=== PATIENT | male | born 1955 | race Caucasian/White ===

== ENCOUNTER 2021-08-19 07:10 | Inpatient (IN) | payer OTHER, MEDICARE, SELFPAY ==
[2021-08-19] VITALS (77 sets, daily range): BP systolic 129–199; BP diastolic 68–109; PULSE 78–115; RESP 14–33; TEMP 35.6–36.8; O2SAT 88–100
--- NOTE | 2021-08-19 07:30 | RT.EKG_ITS ---
APPROVED REPORT Exam: Resting ECG Reason for Exam: sob Patient Location: E HR:105 bpm ECG Measurements Heart Rate 105 AXIS KS 166 P 89 QRSd 102 QRS -83 QT 361 T 62 QTc 477 Conclusion Sinus tachycardia...rate> 99 Probable left atrial enlargement...P >50mS, <-0.10mV V1 Inferior infarct, old...Q >35mS, II III aVF Probable anterolateral infarct, old...Q>35mS, abnrm ST-T, V2-V6,I,aVL sinus tachycardia, left axis, PVC
--- NOTE | 2021-08-19 07:50 | W.ED.GENAD ---
Discharge Plan Disposition Patient Disposition: [facility] INPATIENT Condition: Serious Discharge Details Chief Complaint: SOB Clinical Impression: Alcoholism, Blood pressure elevated without history of HTN, CHF (congestive heart failure) Admit Date/Time: 08/19/21 09:56 Admit Provider: Jun Salguero Attending Provider: Jun Salguero Primary Care Provider: Unknown,Unknown ED Provider: Diamond Jamil Discharge Data Discharge Date/Time-TO BE ENTERED AT DEPARTURE: 08/19/21 10:49 Medical Decision Making Patient is a pleasant 56-year-old male, accompanied by significant other, with chief complaint of shortness of breath. He reports shortness of breath began approximately 1 month ago and has progressively increased. States it is worse when exerting himself and laying flat. Is been having difficulty sleeping secondary shortness of breath. He denies any chest pain. Denies any GI upset. However, he and his do report that they have noticed his abdomen has become more rotund. Over the past week, they have noted increased lower extremity edema. Patient denies any fevers or chills. Smokes 1.5 packs/day. During 6-12 beers per day. Does not receive routine medical care. Denies any personal or familial history of DVT. No recent travel or trauma. No recent surgeries. No known sick contacts. On exam, patient appears acute on chronically ill. He is Currently on 2 L nasal cannula. He is receiving some benefit with the oxygen. He is in a full upright position, reports feeling increased shortness of breath with any type of reclined position. He has crackles throughout, diminished sounds at the bases. Normal cardiac auscultation. Abdomen is distended with positive fluid wave. He is to pulses in all of his extremities. He has 2+ lower extremity pitting edema. No calf tenderness. Patient is hypertensive. EKG was obtained and reviewed by Dr. Samantha Deal. Patient is in sinus rhythm of 105. PVCs noted. No evidence of STEMI. Concern at this time for CHF exacerbation. Dr. Samantha Deal did evaluate the patient and performed bedside ultrasound. Concern for B-lines diffusely, no notable effusion. Concern for diminished contraction of the left ventricle. At this time, I am primarily concerned the patient may have suffered an ND affecting the LV and ultimately leading to pulmonary edema and RV dysfunction. Symptomatic management, radha RT to apply BiPAP, will give IV Lasix. Will obtain bedside x-ray. At this time, patient is unable to lay flat for CT. However, PE is also on my differential, I do feel that moving forward with PE study once you are able with be appropriate. Also considered other pulmonary causes such as COPD, mass or hepatic involvement. Patient is tolerating BiPAP well. Has had at 1900 out in urine after 40 mg of Lasix. Is feeling improved. I was able to test the patient and with the BiPAP on, he is able to tolerate laying slightly flat allowing us to be able to move forward for CT if needed. Patient was given a nicotine patch. I am concerned about potential alcohol withdrawal. Patient also appears quite anxious I did offer anxiolytic which he declined. Labs reviewed. No leukocytosis. Normal H&H. D-dimer is elevated at 685, plan was for for CT for PE protocol. CMP significant for sodium of 129, chloride of 88, anion gap of 15.7. Creatinine and GFR within normal limits. Glucose elevated at 140.. LFTs are within normal limits. Troponin within normal limits, particular the patient is not have any significant chest pain, do not feel that we need repeat troponin prior to the physician for the patient. BNP is elevated at 2720. TSH within normal limits. COVID test negative. Contacted by radiologist, CT concerning for right side effusion, cardiomegally. No PE. Discussed these findings at length with the patient and his . Again, continue to be concerned regarding the LV dysfunction noted on bedside ultrasound. Plan for admission for CHF exacerbation, continue diuresis and evaluation. Consulted with Dr. Cabezas who agrees to admission. He did recommend beginning low-dose phenobarbital treatment to prevent any alcohol withdrawal. Discussed beginning phenobarbital with the patient. He declined this intervention. He reports that he did stop drinking for approximately 6 months at one time. describes him as being shaky and anxious patient denies any seizure activity or an feel that he is not going through withdrawal. Patient refuses premedication for withdrawal symptoms. He continues to do well on the BiPAP is comfortable. HPI General Date/Time Provider Initiated Documentation: 08/19/21 07:38. Limitations to Documentation: no limitations. Information obtained by: patient, family () and RN notes reviewed. History of Present Illness 66 year old M presents to the emergency department with the chief complaint of shortness of breath, described as severe, Quality is described as other (SOB), and is localized to the chest. Patient reports no radiation. Patient started experiencing this month(s) (1) and it has been constant. improves with Rest improves symptom(s), (sitting upright) Movement worsens symptoms (exertion and laying flat) . Patient notes cough (reports unchanged chronic smokers cough) and shortness of breath; denies confusion, chest pain, diaphoresis, fever/chills, loss of appetite, nausea/vomiting, rash and syncope. Patient did receive the following treatments prior to arrival, none Related Data Home Medications Medication Instructions Recorded Confirmed Unknown [No Known Home Meds] 08/19/21 08/19/21 General Stated Complaint: SOB DORIAN: 2 Review of Systems Constitutional Constitutional: Reports as per HPI, Denies chills, Reports daytime sleepiness, Reports fatigue, Denies fever(s), Reports lethargy, Denies poor appetite and Reports weight gain Cardiovascular Cardiovascular: Reports as per HPI, Denies chest pain, Denies chest pain at rest, Denies chest pain with activity, Reports pedal edema, Denies claudication, Reports leg edema, Denies lightheadedness, Denies radiating jaw, neck or arm pain, Denies palpitations, Reports dyspnea, Reports dyspnea on exertion, Reports orthopnea and Reports paroxysmal nocturnal dyspnea Respiratory Respiratory: Reports as per HPI, Denies change in phlegm color, Reports chest congestion, Reports cough, Denies hemoptysis, Denies pain on inspiration, Denies pain with cough, Reports dyspnea, Reports dyspnea on exertion and Denies wheezing Gastrointestinal Gastrointestinal: Reports as per HPI, Denies abdominal pain, Reports bloating (noted abdomen to be distended), Denies diarrhea, Denies nausea and Denies vomiting Genitourinary Genitourinary: Denies system reviewed and no additional complaints, except as documented (denies change in urinary habits) Musculoskeletal Musculoskeletal: Reports as per HPI and Denies back pain Integumentary/Breasts Skin/Breast: Reports as per HPI and Denies rash Neurologic Neurologic: Reports as per HPI Endocrine Endocrine: Reports fatigue and Denies palpitations Allergic/Immunologic Allergic/Immunologic: Denies wheezing PFSH All Active Problems (Updated 08/19/21 @ 14:47 by DAVID Mercado) CHF (congestive heart failure) (Chronic) Mitral regurgitation (Chronic) Cardiomyopathy (Acute) Blood pressure elevated without history of HTN (Acute) Alcoholism (Chronic) Acute systolic (congestive) heart failure (Acute) Medical History (Updated 08/19/21 @ 14:47 by DAVID Mercado) No pertinent past medical history Surgical History (Updated 08/19/21 @ 13:46 by Jun Salguero) No significant past surgical history Family History (Updated 08/19/21 @ 13:49 by Jun Salguero) Aunt No problems noted. Mother Seizure Father No problems noted. Sister No problems noted. Brother No problems noted. Son No problems noted. Son No problems noted. Social History (Updated 08/19/21 @ 13:50 by Jun Salguero) Smoking/Tobacco Use Status: Current every day Tobacco Type: cigarettes Tobacco: How many years used: 50 Smoking risk assessment performed?: Yes Alcohol Intake: current Alcohol Intake frequency: other Alcohol type: beer Previous attempts at quittin Details: 6 to 12 beers per day Substance use type: does not use Do you feel safe at home: Yes Do you feel safe in your relationship?: Yes Exam Const General: cooperative, not healthy appearing, uncomfortable, well developed, acute distress moderate and respiratory, anxious and ill appearing acutely Nutritional Appearance: well nourished and overweight Orientation: alert, awake and oriented x3 HENMT Head: normal to inspection Ears: hearing grossly normal bilaterally Mouth: moist mucous membranes Eyes General: appearance normal, both eyes and all related structures Neck Neck: normal visual inspection and no JVD Chest Chest: normal inspection of the chest, normal palpation of entire chest wall and no crepitus Resp Effort & Inspection: no audible wheezes, no cough, pursed lip breathing, respiratory distress, tachypneic, tripod positioning and uses accessory muscles Auscultation: clear to auscultation bilaterally, no rales, no rhonchi and no wheezes Cardio Rate: tachycardic Rhythm: regular rhythm Heart Sounds: S1 normal and S2 normal GI Inspection: no edema and distended Palpation: firm, no guarding, not rigid and nontender Percussion: fluid wave Auscultation: normal bowel sounds Skin General skin exam: no rashes or lesions noted Trauma: no lacerations or abrasions Neuro General: patient alert, patient awake and patient oriented x3 Cognition: normal cognition Speech: speech normal Extrem General: capillary refill normal, no calf tenderness bilaterally, clubbing and edema Laterality: bilateral (2+) Psych Appearance: grossly normal and well kempt Mental Status: mental status grossly normal Speech and Movement: speech and movement normal Course Vital Signs Vital signs: Vital Signs Temperature 36.8 C 08/19/21 07:23 Pulse 107 H 08/19/21 07:23 Blood Pressure 199/103 H 08/19/21 07:23 Temperature 36.8 C 08/19/21 07:23 Temperature Source Temporal Artery Scan 08/19/21 07:23 Pulse 107 H 08/19/21 07:23 Respiratory Rate 33 H 08/19/21 07:31 Respiratory Effort 08/19/21 07:31 Respiratory Depth Deep 08/19/21 07:31 Respiratory Pattern Normal 08/19/21 07:31 Blood Pressure 199/103 H 08/19/21 07:23 Blood Pressure Position Supine 08/19/21 07:23 Oxygen Delivery Method Room Air 08/19/21 07:23 Oxygen Flow Rate 0 08/19/21 07:23 PAWSS Have you Been Recently Intoxicated or Drunk Within the Last 30 days?: Yes Have you Ever Experienced Previous Episodes of Alcohol Withdrawal?: Yes Have you ever Experienced Withdrawal Seizures?: No Have you ever Experienced Delirium Tremens(DT)s?: No Have you ever undergone Alcohol Rehabilitation Treatment (i.e, inpt ot outpatient treatment programs)?: No Have you ever Experienced Blackouts?: No Have you ever Combined Alcohol with other Downers within the last 90 days?: No Have you ever Combined Alcohol with any other Substance of Abuse during the last 90 days?: No Evidence of Increased Autonomic Activity (i.e. HR>120, tremor, sweating, agitation, nausea)?: Yes Result: 3
[2021-08-19 08:10] LABS: Source Nasal/Nares
[2021-08-19 08:11] LABS: Abs Immature Grans 0.05 10^3/uL (0.0-0.06); Absolute Basophil Count 0.05 10^3/uL (0.0-0.2); Absolute Eosinophil Count 0.06 10^3/uL (0.0-0.7); Absolute Lymphocyte Count 1.16 10^3/uL (1.2-3.4); Absolute Monocyte Count 0.92 10^3/uL (0.1-0.8); Absolute Neutrophil Count 7.97 10^3/uL (1.2-6.7); Basophils % 0.5; Eosinophils % 0.6; HCT 45.8 % (40.0-50.0); HGB 15.5 g/dL (13.5-17.5); Immature Grans % 0.5; Lymphocytes % 11.4; MCH 29.4 pg (27.0-33.0); MCHC 33.8 % (32.0-36.0); MCV 87 fL (80-95); MPV 10.6 fL (8.0-11.0); Platelet Count 247 10^3/uL (130-400); RBC 5.27 10^6/uL (4.36-5.78); RDW 12.7 % (11.8-14.1); RDW-SD 39.9 fL; WBC 10.21 10^3/uL (4.4-10.8)
[2021-08-19] MEDS: Furosemide 40 MG/4 ML VIAL IVP ×2 (08:16→18:00)
[2021-08-19] MEDS: Normal Saline Flush 10 ML SYR IVP ×3 (08:17→16:49)
[2021-08-19 08:29] LABS: INR 1.1 (0.9-1.1); PTT Activated 27.8 sec (21.0-27.5)
[2021-08-19 08:33] LABS: ALT 37 U/L (16-63); AST 28 U/L (15-37); Albumin 3.6 g/dL (3.4-5.0); Alkaline Phosphatase 61 U/L (46-116); Anion Gap 15.7 mmol/L (3-11); BUN 11 mg/dL (7-18); CO2 25.3 mmol/L (21.0-32.0); CREATININE 0.7 mg/dL (0.70-1.30); Calcium 8.5 mg/dL (8.5-10.1); Chloride 88 mmol/L (98-107); Glucose 143 mg/dL (74-106); Magnesium 1.8 mg/dL (1.8-2.4); Potassium 3.9 mmol/L (3.5-5.1); Sodium 129 mmol/L (136-145); Total Protein 6.9 g/dL (6.4-8.2); Troponin I < 50 ng/L (<or=60)
[2021-08-19 08:44] LABS: D-Dimer 685 ng/mlFEU (<500)
[2021-08-19 08:48] LABS: COVID-19 PCR Negative (Negative)
--- NOTE | 2021-08-19 08:51 | DI.RAD_ITS ---
Exam(s) XR PORTABLE CHEST AP EXAM: XR PORTABLE CHEST AP CLINICAL HISTORY: SOB TECHNIQUE: 2D digital imaging was performed. COMPARISON: No exams were available for comparison FINDINGS: Exam is somewhat limited by patient body habitus and under penetration. LUNGS: Small right pleural effusion. Increased densities at right lung base could represent pneumoni a. Left lung appears clear. HEART: Enlarged. Aorta not dilated. Leads overlie the chest. AORTA: Normal. BONES: Multiple old right rib fractures. Soft tissues: Unremarkable. IMPRESSION: Small right pleural effusion and right basilar infiltrate. DATA REPOSITORY: RADIATION DOSE DELIVERED:
[2021-08-19] MEDS: Nicotine 21 MG/24 HR PATCH TD (08:52)
--- NOTE | 2021-08-19 09:00 | DI.CT_ITS ---
Exam(s) CT CHEST PE CTA EXAM: CT CHEST PE CTA CLINICAL HISTORY: SOB, elevated d-dimer, swelling. TECHNIQUE: Imaging Protocol: Axial CT angiography was performed with multi-slice acquisition and mu lti-planar reconstructions as well as axial, coronal and sagittal MIP reconstructions. CONTRAST MATERIAL: Intravenous: Omnipaque 350 Contrast volume:100 ml COMPARISON: CR XR PORTABLE CHEST AP from 08/19/2021 FINDINGS: Pulmonary Arteries: No evidence of filling defect to suggest pulmonary emboli. Tracheobronchial tree: Patent where visualized. Mediastinum and Gela: No dominant adenopathy or fluid collection. Pulmonary parenchyma: Somewhat limited evaluation due to respiratory motion. Mild atelectasis right inferomedial middle lobe. No consolidation or dominant measurable mass. Pleura: Small right pleural effusion. No pneumothorax. Heart: The heart is dilated. Mitral annular calcifications. No coronary artery calcifications are seen. Aorta: Thoracic aorta non-dilated. No aneurysm. No dissection. Upper abdomen: Enlarged fatty liver. Small bilateral adrenal adenomas. Bones: Degenerative disc changes, unremarkable for age. IMPRESSION: No evidence of pulmonary embolism. Cardiomegaly. Small right pleural effusion and mild right middle lobe atelectasis. Results of this exam have been verbally communicated with emergency department provider. RADIATION DOSE DELIVERED: 516.48mGy.cm Total DLP DATA REPOSITORY: All CT scans at this facility are submitted to the National Radiology Data Registry (NRDR) Dose Index Registry (DIR) with the [employer] ([employer]). RADIATION OPTIMIZATION: All CT scans at this facility use at least one of these dose optimization te chniques: automated exposure control; mA and/or kV adjustment per patient size (includes targeted exa ms where dose is matched to clinical indication); or iterative reconstruction.
[2021-08-19 09:11] LABS: NT-proBNP 2720 pg/mL (<300); TSH (W/Ref FT4) 1.47 uIU/mL (0.36-3.74)
[2021-08-19] MEDS: Omnipaque 350 MG/ML 100 ML BTL IJ (09:40)
--- NOTE | 2021-08-19 10:12 | HPE_ITS ---
Date of service: 08/19/21 Time of Service: 10:12 Assessment and Plan Assessment and plan (1) Acute systolic (congestive) heart failure: Status: Acute Assessment and plan: ischemic vs nonischemic; cont. iv lasix drip, diurese by 5 to 6 liters over the next 24h, cycle troponin levels; begin aldosterone; once he is euvolemic begin low dose Toprol XL and start him on empagliflozin and Entresto. arrange outpatient stress MPI and PSG. Encourage abstinence. cont. CPAP or BIPAP while diuresing but if not acute dyspneic and he is able to maintain good oxygen saturation w/ nasal cannula then I am ok w/ using NC if he wont wear the BIPAP. HOwever, I am certain that he has VALERIANO and should be on it at least at night. Critical care time spent interviewing and examining the patient, reviewing studies, discussing case with patient's nurse and consulting physicians was 60 minutes (2) Alcoholism: Status: Chronic Assessment and plan: begin thiamine, folic acid, mvs; patient declined phenobarbital prophylaxis but if he shows signs of rising CIWA score then I would begin low dose phenobarbital. (3) Obstructive sleep apnea: Status: Suspected Assessment and plan: strongly suspected based on his neck circumference, hx of snoring and witnessed apneic spells. (4) Blood pressure elevated without history of HTN: Status: Acute Assessment and plan: no hx of HTN and his elevated BP may be in response to his acute respiratory distress on admission to the ER. Will monitor while diuresing. He will need to be on ARB/NI, (5) Cardiomyopathy: Status: Acute Assessment and plan: I suspect that this is d/t his alcoholism however, need to (6) Mitral regurgitation: Status: Chronic History of Present Illness History of Present Illness Chief Complaint: dyspnea, legs swelling Narrative: 66 yr old male smoker and drinker of alcohol who presented to the ED at his girlfriend's urging d/t increasing bilateral leg and abdominal edema and dyspnea. He has been experiencing dypsnea for past several weeks and bilateral leg edema to his knees for past few weeks. He also has noted occasional chest tightness. He says that his physician, Dr. Bergeron told him years ago that he has a heart murmur but never had any workup for this. He denies any hx of WA. His girlfriend who later presented to the ICU after I interviewed him tells me that he snores a lot in his sleep and occasionally has apneic spells but he has not had workup for VALERIANO. He drinks anywhere from a couple beers up to 12 pack per day. His girlfiend w/ whom has lived for over 20 yrs says that he begins drinking at 2 pm right after work and does not quit until bedtime. On arrival to the ER he was tachycardic at 107 bpm (sinus tachycardia), hypertensive 199/103, afebrile 36.8, tachypneic at 33 breaths per minute, but he was not hypoxemic (SPO2 95%). Patient was put on bipap and given lasix 40 mg IVP while ischemia and PE workup were performed. Evaluation in the ER included EKG, CXR, labs. EKG demonstrated sinus tachycardia @ 105 bpm w/ occasional PVC. No acute ischemic ST-T changes. CXR demonstrates cardiomegaly and right pleural effusion and atelectasis on the right along w/ increased interstitial edema.CTA chest did not show any PE but demonstrated cardiomegaly, small right pleural effusion and right middle lobe atelectasis. Labs included CBC, CMP, troponin I, pro-BNP, TSH, protime, aPtt, D-dimer. CBC was normal, CMP demonstrates low sodium 129, low chloride 88, normal BUN and creatinine, normal LFT's and normal troponin I of 61 but elevated BNP of 2720. Patient was given lasix 40 mg IVP w/ diuresis of 1900 mL. POCUS performed by ER atttending demonstrated severe LV dysfunction and his lung POCUS demonstrates bilateral diffuse B lines. Patient is admitted to the ICU for further evluation and treatment of acute CHF. Echo has been now performed and demonstrated severe LV dysfunction w/ LVEF 20- 25% w/ global hypokinesis. RV mildly to moderately enlarged but grossly normal systolic function, LAE mod., NICOLE mildly, mild AI, MR moderate to severe, TR mild to moderate w/ RVSP 36 mm, mildly dilated ascending aorta 3.62 cm. Review of Systems Constitutional Constitutional: Reports system reviewed and no additional complaints, except as documented, Denies chills, Denies fever(s), Reports snoring (per his girlfriend) and Reports stops breathing during sleep (per his girlfriend) Eyes Eyes: Reports system reviewed and no additional complaints, except as documented ENT Ears, Nose, Mouth, and Throat: Reports system reviewed and no additional complaints, except as documented Cardiovascular Cardiovascular: Reports as per HPI, Reports dyspnea and Reports dyspnea on exertion Respiratory Respiratory: Reports as per HPI, Denies change in phlegm color, Denies chest congestion, Reports dyspnea, Reports dyspnea on exertion and Reports snoring (per his girlfriend) Gastrointestinal Gastrointestinal: Reports system reviewed and no additional complaints, except as documented and Reports other (abdominal distension) Genitourinary Genitourinary: Reports system reviewed and no additional complaints, except as documented Musculoskeletal Musculoskeletal: Reports system reviewed and no additional complaints, except as documented Integumentary/Breasts Skin/Breast: Reports system reviewed and no additional complaints, except as documented Neurologic Neurologic: Reports system reviewed and no additional complaints, except as documented Endocrine Endocrine: Reports system reviewed and no additional complaints, except as documented Hematologic/Lymphatic Hematologic/Lymphatic: Reports system reviewed and no additional complaints, except as documented PFSH All Active Problems (Updated 08/19/21 @ 14:47 by DAVID Mercado) CHF (congestive heart failure) (Chronic) Mitral regurgitation (Chronic) Cardiomyopathy (Acute) Blood pressure elevated without history of HTN (Acute) Alcoholism (Chronic) Acute systolic (congestive) heart failure (Acute) Medical History (Updated 08/19/21 @ 14:47 by DAVID Mercado) No pertinent past medical history Surgical History (Updated 08/19/21 @ 13:46 by Jun Salguero) No significant past surgical history Family History (Updated 08/19/21 @ 13:49 by Jnu Salguero) Aunt No problems noted. Mother Seizure Father No problems noted. Sister No problems noted. Brother No problems noted. Son No problems noted. Son No problems noted. Social History (Updated 08/19/21 @ 13:50 by Jun Salguero) Smoking/Tobacco Use Status: Current every day Tobacco Type: cigarettes Tobacco: How many years used: 50 Smoking risk assessment performed?: Yes Alcohol Intake: current Alcohol Intake frequency: other Alcohol type: beer Previous attempts at quittin Details: 6 to 12 beers per day Substance use type: does not use Do you feel safe at home: Yes Do you feel safe in your relationship?: Yes Meds Allergies and Home Medications Home Medications Medication Instructions Recorded Confirmed Type Unknown [No Known Home Meds] 08/19/21 08/19/21 History Exam Narrative Exam Narrative: Obese white male lying in bed in semi-light position wearing oxygen at 1.5 lpm NC. no respiratory distress now. not using accessory respiratory muscles HEENT: grossly normal Neck: supple, minimal JVD even w/ abdominal compression; no adenopathy; normal carotid pulses other than tachycardia Lungs: diffuse bilateral raless in all lung weiss Abdomen; distended, normal bowel sounds, positive ascites fluid wave, no tenderness nor guarding Legs: bilateral 3+ pedal and pretibial edema Feet: warm and dry w/ intact pedal pulses Neuro: no asterixis, normal ROM and strength, normal sensory to light touch; alert and oriented x 3 Results Labs Result diagrams: 08/19/21 07:50 08/19/21 16:15 Labs: Laboratory Results - last 24 hr 08/19/21 08/19/21 08/19/21 07:50 07:50 07:50 WBC 10.21 RBC 5.27 Hgb 15.5 Hct 45.8 MCV 87 MCH 29.4 MCHC 33.8 RDW 12.7 Plt Count 247 MPV 10.6 Immature Gran % 0.5 Neutrophils % 78.0 Lymphocytes % 11.4 Monocytes % 9.0 Eosinophils % 0.6 Basophils % 0.5 Nucleated RBC % 0.0 Absolute Neutrophils 7.97 H Absolute Lymphocytes 1.16 L Absolute Monocytes 0.92 H Absolute Eosinophils 0.06 Absolute Basophils 0.05 PT 11.0 INR 1.1 APTT 27.8 H D-Dimer 685 H Sodium 129 L Potassium 3.9 Chloride 88 L Carbon Dioxide 25.3 Anion Gap 15.7 H BUN 11 Creatinine 0.7 Estimated GFR/1.73 m2 >= 60.00 Glucose 143 H Calcium 8.5 Magnesium 1.8 Total Bilirubin 1.0 AST 28 ALT 37 Alkaline Phosphatase 61 Troponin I < 50 NT-Pro-B Natriuret Pep 2720 H Total Protein 6.9 Albumin 3.6 TSH 1.47 COVID-19 Source SARS-CoV-2 (PCR) 08/19/21 08/19/21 07:50 07:55 WBC RBC Hgb Hct MCV MCH MCHC RDW Plt Count MPV Immature Gran % Neutrophils % Lymphocytes % Monocytes % Eosinophils % Basophils % Nucleated RBC % Absolute Neutrophils Absolute Lymphocytes Absolute Monocytes Absolute Eosinophils Absolute Basophils PT INR APTT D-Dimer Sodium Potassium Chloride Carbon Dioxide Anion Gap BUN Creatinine Estimated GFR/1.73 m2 Glucose Calcium Magnesium Total Bilirubin AST ALT Alkaline Phosphatase Troponin I NT-Pro-B Natriuret Pep Cancelled Total Protein Albumin TSH Cancelled COVID-19 Source Nasal/Nares SARS-CoV-2 (PCR) Negative Last Vital Signs Temp 36.8 C 08/19/21 07:23 Pulse 97 H 08/19/21 09:55 Resp 33 H 08/19/21 09:42 BP 161/104 H 08/19/21 09:42 Pulse Ox 95 08/19/21 09:55 PAWSS Have you Been Recently Intoxicated or Drunk Within the Last 30 days?: Yes Have you Ever Experienced Previous Episodes of Alcohol Withdrawal?: Yes Have you ever Experienced Withdrawal Seizures?: No Have you ever Experienced Delirium Tremens(DT)s?: No Have you ever undergone Alcohol Rehabilitation Treatment (i.e, inpt ot ou tpatient treatment programs)?: No Have you ever Experienced Blackouts?: No Have you ever Combined Alcohol with other Downers within the last 90 days?: No Have you ever Combined Alcohol with any other Substance of Abuse during the last 90 days?: No Evidence of Increased Autonomic Activity (i.e. HR>120, tremor, sweating, agitation, nausea)?: Yes Result: 3
--- NOTE | 2021-08-19 10:35 | DI.US_ITS ---
APPROVED REPORT EXAM: Comprehensive 2D, Doppler, and color-flow Echocardiogram Patient Location: ER Medical Equipment Repairer: Meli Aquino RDCS (AE) Indications: New onset of CHF, Evaluate LV and RF function Other Information Study Quality: Adequate. Technically limited study due to body habitus, inability to position patient exam done supine. Conclusion Normal left ventricular wall thickness and chamber size. Estimated ejection fraction is 20 to 25%. There is global hypokinesis The right ventricle is mildly to moderately enlarged with grossly normal systolic function The left atrium is moderately dilated. The right atrium is mildly dilated Aortic valve is sclerotic and trileaflet with mild regurgitation Mitral annular calcification. Moderate to severe mitral regurgitation Normal tricuspid valve with mild to moderate regurgitation. Estimated right ventricular systolic pre ssure is 36 mmHg Mildly dilated ascending aorta measuring 3.62 cm Wall motion Left Ventricle The left ventricle is normal size. Left ventricular systolic function is severely decreased. There is normal left ventricular wall thickness. There is global hypokinesis of the left ventricle. There is no ventricular septal defect visualized. LVEF is 21%. Right Ventricle Right ventricle is mild to moderately dilated. Right ventricular systolic function is grossly normal. The RVSP is 36.1 mmHg. Atria Left atrium is moderately dilated. Right atrium is mildly dilated. The interatrial septum is intact w ith no evidence for an atrial septal defect. Aortic Valve The Aortic valve is sclerotic. Aortic valve is trileaflet. There is no aortic valvular stenosis. Mild aortic regurgitation. Mitral Valve Moderate mitral annular calcification. Mild mitral stenosis. Moderate to severe mitral regurgitation. Tricuspid Valve The tricuspid valve is normal in structure. There is no tricuspid valve stenosis. Mild to moderate tr icuspid regurgitation. Pulmonic Valve The pulmonary valve is normal in structure. There is no pulmonic valvular stenosis. Trace pulmonic re gurgitation. Great Vessels The aortic root is normal in size. The ascending aorta is mildly dilated. Aortic arch is not well vis ualized. The IVC collapses <50% with inspiration. Pericardium There is no pericardial effusion. 2D Dimensions IVSD d PLAX 1.11 cm M: 0.6-1.2 LV Vol A2C d MOD 147.4 mL LVPW d PLAX 1.15 cm M: 0.6 - 1.2 LV Vol A4C d MOD 165.9 mL LVID d PLAX 5.85 cm M: 4.2 - 5.8 LA vol/ BSA A2C s A-L 22.7 mL/m2 LVDs 5.20 cm M: 2.5 - 4.0 LA vol/ BSA A4C s A-L 34.9 mL/m2 Ao Root d 3.29 cm M: 3.1 - 3.7 LA Vol/ BSA Biplane s A-L 30.4 mL/m2 RA Area A4C 27.30 cm2 LA Area A4C s MOD 23.24 cm2 RA Vol/ BSA A4C s A-L 46.0 mL/m2 LA Area A2C s MOD 17.31 cm2 Ao Asc Diam d 3.62 cm M: 2.6 - 3.4 LV EF A4C MOD 21.4 % LV EF Teichholz 22.4 % LV EF A2C MOD 21.0 % LVEF (Reyes's) 20.53 % M: 52 - 72 LV EF Biplane MOD 20.5 % LV Volume 116.27 mL M: 62 - 150 SV 32.80 mL LV Volume Index 53.09 mL/m2 M: 34 - 74 SV Index 14.95 mL/m2 LV Vol Biplane MOD 159.7 mL FS 10.40 % M-Mode TAPSE 1.64 cm (M/F) >1.7 LV Diastology MV E' medial 0.066 (>0.07 m/s) E/A Ratio 0.9 LV E/e MED 25.00 (<14) MV E Vmax 1.64 (0.4-1.3 m/s) MV E' lateral 0.101 (>0.1 m/s) MV A Vmax 1.75 (0.4-1.3 m/s) LV E/e LAT 16.25 (<14) MV E/A Ratio 0.92 MV E/E' medial 25.00 MV E/E' lateral 16.26 Aortic Valve LVOT Area 3.16 cm2 AoV Area Vmax 2.49 cm2 LVOT Vmax 1.10 m/s AoV Area/ BSA (Vmax) 1.14 cm2/m2 LVOT Mean Alexys. 0.73 m/s INESSA Mean Alexys. 2.40 cm2 LVOT Peak Grad 4.8 mmHg INESSA Mean Alexys. Index 1.09 cm2/m2 LVOT Mean Grad 2.5 mmHg AR DT 1346 msec LVOT VTI 0.173 m AR PHT 390 msec LVOT Diam s 2.00 cm AoV Vmax 1.39 m/s Velocity Ratio 0.79 AoV Mean Alexys. 0.97 m/s AoV Peak Grad 7.8 mmHg LVOT SV 54.81 mL AoV Mean Grad 4.2 mmHg AoV VTI 0.249 m AoV Area VTI 2.20 cm2 AoV Area/ BSA (VTI) 1.00 cm/m2 Mitral Valve MV DT 341 (160-240 msec) MR Vmax 5.62 m/s MV PHT 99 msec MR VTI 1.829 m MV Area PHT 2.23 cm2 MR Peak Grad 126.4 mmHg MV VTI 0.668 m MR Mean Grad 94.9 mmHg MV VTI Annulus 0.710 m MR PISA Radius 0.55 cm MV Area VTI 0.87 (4.0-6.0 cm2) MR EROA 0.12 cm2 MR Aliasing Velocity 0.35 m/s MR PISA 1.89 cm2 Pulmonary Valve PV Vmax 0.76 (0.5-1.5 m/s) RVOT Peak Gr. 1.23 mmHg PV Peak Grad 2.3 mmHg RVOT Mean Gr. 0.60 mmHg PV Mean Grad 1.3 mmHg RVOT VTI 0.096 m PV VTI 0.114 m RVOT Vmax 0.55 m/s Tricuspid Valve TR Peak Grad 28.0 mmHg TR Vmax 2.65 m/s RA Pressure 8.00 mmHg RVSP (TR) 36.1 mmHg
--- NOTE | 2021-08-19 11:04 | INITIAL_ITS ---
- If Service Date Differs Date of service: 08/19/21 Time of Service: 11:04 Care Management Initial Assess REASON FOR HOSPITALIZATION:: Acute CHF. PAST MEDICAL HISTORY/PAST SURGICAL HISTORY:: All Active Problems: Mitral regurgitation (Chronic), Cardiomyopathy (Acute), Blood pressure elevated without history of HTN (Acute),. Alcoholism (Chronic), and Acute systolic (congestive) heart failure (Acute). Medical History: No pertinent past medical history. Surgical History: No significant past surgical history PREVIOUS FUNCTIONAL STATUS/SOCIAL/FAMILY SUPPORTS:: Alhaji lives in [place] with Elizabeth, his non destructive testing supervisor of 25+ years. He has 2 grown children who live locally. 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 He drives and is independent at baseline. CURRENT FUNCTIONAL STATUS:: Alhaji is lying in bed when CM meets with him. His non destructive testing supervisor, Elizabeth, is present in the room. Alhaji is pleasant and easily engages in conversation despite clearly not feeling well. Alhaji has reportedly been unable to sleep for the past month due to becoming short of breath when lying down. ADVANCE DIRECTIVES:: None on file; Alhaji accepts a form from to complete at a later time. Has patient been provided with info about the portal/API?: Yes Did the patient sign up for the portal?: No (Not interested) CODE STATUS:: Full Code INSURANCE COVERAGE / FINANCIAL ISSUES:: [employer] (thru [employer]) and Medicare. CURRENT HOME/COMMUNITY SERVICES/EQUIPMENT:: None. PRIMARY CARE PHYSICIAN:: None - needs to be assigned to a PCP upon discharge. POTENTIAL DISCHARGE NEEDS:: Follow up appointments with designated PCP and hazmat truck driver. PATIENT/FAMILY EDUCATION NEEDS:: Review of discharge instructions, including m edications and follow up plan of care; discuss Ask Me Three and self management. ANTICIPATED BARRIERS TO DISCHARGE:: No anticipated barriers currently. TRANSPORTATION:: Via private vehicle with non destructive testing supervisor Elizabeth. PLAN:: Alhaji will likely be discharged home with no services when medically cleared by provider. He will follow up with a designated PCP and discharge plan of care as instructed. He will be transported home via private vehicle by his non destructive testing supervisor, Elizabeth, when ready. CM will continue to follow.
[2021-08-19] MEDS: Spironolactone 25 MG TAB PO (11:51)
[2021-08-19] MEDS: Thiamine 100 MG TAB PO (11:51)
[2021-08-19] MEDS: Folic Acid 1 MG TAB PO (11:52)
[2021-08-19 12:00] LABS: Troponin I 61 ng/L (<or=60)
[2021-08-19] MEDS: Enoxaparin 40 MG/0.4 ML SYR SC (13:07)
--- NOTE | 2021-08-19 13:43 | NUR.NOTE ---
Patient is eligible for covid-19 booster immunization. Patient says he does not want it right off but I did let him know that he can get it before he leaves here if he wishes. Nursing Note:
[2021-08-19 16:51] LABS: Magnesium 1.9 mg/dL (1.8-2.4); Potassium 4.5 mmol/L (3.5-5.1)
[2021-08-19 17:04] LABS: Troponin I 78 ng/L (<or=60)
[2021-08-20] VITALS (75 sets, daily range): BP systolic 118–175; BP diastolic 61–105; PULSE 67–109; RESP 11–24; TEMP 35.3–36.8; O2SAT 88–98
[2021-08-20] MEDS: Furosemide 40 MG/4 ML VIAL IVP ×2 (05:26→10:41)
[2021-08-20] MEDS: Normal Saline Flush 10 ML SYR IVP ×4 (05:27→16:09)
[2021-08-20 07:15] LABS: Anion Gap 8.2 mmol/L (3-11); BUN 11 mg/dL (7-18); CO2 31.8 mmol/L (21.0-32.0); CREATININE 0.9 mg/dL (0.70-1.30); Calcium 8.7 mg/dL (8.5-10.1); Chloride 97 mmol/L (98-107); Glucose 113 mg/dL (74-106); Potassium 3.6 mmol/L (3.5-5.1); Sodium 137 mmol/L (136-145)
[2021-08-20] MEDS: Folic Acid 1 MG TAB PO (07:37)
[2021-08-20] MEDS: Spironolactone 25 MG TAB PO (07:37)
[2021-08-20] MEDS: Multivitamin TAB 1 TAB PO (07:38)
[2021-08-20] MEDS: Thiamine 100 MG TAB PO (07:38)
--- NOTE | 2021-08-20 07:45 | RT.EKG_ITS ---
APPROVED REPORT Exam: Resting ECG Reason for Exam: elevated troponin Patient Location: I HR:81 bpm ECG Measurements Heart Rate 81 AXIS FL 158 P 35 QRSd 105 QRS -65 QT 413 T 79 QTc 480 Conclusion Sinus rhythm...normal P axis, V-rate 50- 99 LAD, consider left anterior fascicular block...axis(240,-40), S>R II III aVF Borderline T wave abnormalities...T/QRS ratio < 1/20 or flat T Poor R wave progression
[2021-08-20 09:08] LABS: Lab Add On Test DONE
[2021-08-20 09:27] LABS: Troponin I 66 ng/L (<or=60)
--- NOTE | 2021-08-20 09:33 | W.PM.PROGNOT ---
Date of Service Date of service: 08/20/21 Time of Service: 09:33 Assessment and Plan Assessment and plan (1) Acute systolic (congestive) heart failure: Status: Acute Assessment and plan: ischemic vs nonischemic; continuous Lasix drip was discontinued yesterday was put on IV Lasix 40 mg IV twice daily. Will double the dose to 80 mg IV twice daily. Patient is being started on goal-directed therapy including Jardiance and Entresto and spironolactone. I will also be adding low-dose Toprol-XL to his regimen. (2) Alcoholism: Status: Chronic Assessment and plan: begin thiamine, folic acid, mvs; patient declined phenobarbital prophylaxis but if he shows signs of rising CIWA score then I would begin low dose phenobarbital. Patient has not scored significantly on the CIWA scale. Score 0 this morning. He has not required any phenobarbital or benzodiazepines. (3) Obstructive sleep apnea: Status: Suspected Assessment and plan: strongly suspected based on his neck circumference, hx of snoring and witnessed apneic spells. (4) Blood pressure elevated without history of HTN: Status: Acute Assessment and plan: no hx of HTN and his elevated BP may be in response to his acute respiratory distress on admission to the ER. Will monitor while diuresing. He will need to be on ARB/NI, (5) Cardiomyopathy: Status: Acute Assessment and plan: I suspect that this is d/t his alcoholism however, need to need to pursue further work-up including stress MPI and sleep study as an outpatient. (6) Mitral regurgitation: Status: Chronic Subjective Subjective Interval history since last seen: Patient is feeling markedly better. He is not dyspneic at rest not having any orthopnea or PND. His weight went down from 108 kg down to 100.5 kg. He is diuresed a total of 8300 mL and his net negative balance is nearly 7500 mL. Patient is eager to return home but he is willing to stay 1 more day while we get him on goal-directed therapy for dilated cardiomyopathy. I explained to him in detail the various causes for cardiomyopathy including his alcohol use as well as possible sleep apnea as well as ischemic cardiomyopathy. I explained to him that he will need a sleep study and stress MPI study as an outpatient. He also understands he needs to abstain from alcohol in the future. He remains on 1 L/min per nasal cannula with oxygen saturation 94% and has no dyspnea. Repeated troponins have remained flat. He has no chest pain. Exam Narrative Exam Narrative: Obese middle-aged white male who sitting up in his bed alert and oriented person place time circumstance. He is cooperative and has no complaints. Neck is without JVD Lungs with some fine bibasilar rales no rhonchi no wheezes Heart regular rate and rhythm Abdomen is obese soft no longer firm and distention has improved. Legs with 1+ pitting edema over the pretibial areas as well as his ankles. There is been marked improvement in his peripheral edema. Objective Last Vital Signs Temp 36.8 C 08/20/21 08:06 Pulse 78 08/20/21 08:06 Resp 20 08/20/21 08:06 BP 139/62 08/20/21 08:06 Pulse Ox 95 08/20/21 08:13 Laboratory Results - last 24 hr 08/19/21 08/19/21 08/19/21 11:30 16:15 16:15 Sodium Potassium 4.5 Chloride Carbon Dioxide Anion Gap BUN Creatinine Estimated GFR/1.73 m2 Glucose Calcium Magnesium 1.9 Troponin I 61 H 78 H* Add-On Test Request 08/20/21 08/20/21 08/20/21 05:23 05:23 05:23 Sodium 137 Potassium 3.6 Chloride 97 L Carbon Dioxide 31.8 Anion Gap 8.2 BUN 11 Creatinine 0.9 Estimated GFR/1.73 m2 >= 60.00 Glucose 113 H Calcium 8.7 Magnesium Troponin I 66 H* Add-On Test Request DONE PAWSS Have you Been Recently Intoxicated or Drunk Within the Last 30 days?: Yes Have you Ever Experienced Previous Episodes of Alcohol Withdrawal?: No Have you ever Experienced Withdrawal Seizures?: No Have you ever Experienced Delirium Tremens(DT)s?: No Have you ever undergone Alcohol Rehabilitation Treatment (i.e, inpt ot outpatient treatment programs)?: No Have you ever Experienced Blackouts?: No Have you ever Combined Alcohol with other Downers within the last 90 days?: Yes Have you ever Combined Alcohol with any other Substance of Abuse during the last 90 days?: No Positive Blood Alcohol level on Presentation? [PCS.BAL]: No Evidence of Increased Autonomic Activity (i.e. HR>120, tremor, sweating, agitation, nausea)?: No Result: 1
[2021-08-20] MEDS: Empaglifozin 10 MG TAB PO (10:39)
[2021-08-20] MEDS: Sacubitril/Valsartan 24 mg/26 mg TAB 1 EACH PO ×2 (10:39→20:12)
[2021-08-20] MEDS: Metoprolol CR 25 MG TABCR PO (10:39)
--- NOTE | 2021-08-20 11:03 | NUR.NOTE ---
Called [facility] to set up a PCP, they need pt to fill out paper work before they can make a scheduled appointment. Pt advised he needs to call on D/C and grab paper work on the way home. He was given the phone number and address. Also, this filing writer called cardiology to make follow up, and they stated they would call the pt after the nurse reviews their chart. Pt was advised on this.
--- NOTE | 2021-08-20 12:20 | PDOC.CMPRO ---
- If Service Date Differs Date of service: 08/20/21 Time of Service: 12:20 Care Management Progress Note S/O: Alhaji was sitting up on the edge of his bed when CM met with him today. He stated that he is feeling better, and is hoping he can discharge home soon. Per provider, he is not medically cleared for discharge today. CM discussed setting up a follow up appointment with the MD vice president of instruction when he arrived at the ED. He stated that he would like to get connected with a provider at [facility]. His girlfriend was present, and stated that she has the paperwork to become a new patient at [facility]. CM will continue to follow. A: Alhaji is a 66 year old male admitted to [facility] on 08/19/21 with acute CHF. P: Alhaji will likely be discharged home with no services when medically cleared by provider. He will follow up with a designated PCP and discharge plan of care as instructed. He will be transported home via private vehicle by his dry man, Elizabeth, when ready. CM will continue to follow.
[2021-08-20] MEDS: Furosemide 100 MG/10 ML VIAL 80 MG IVP (16:08)
[2021-08-20] MEDS: Atorvastatin 40 MG TAB PO (20:13)
[2021-08-21] VITALS (23 sets, daily range): BP systolic 149; BP diastolic 64; PULSE 58–81; RESP 10–27; O2SAT 91
[2021-08-21 06:57] LABS: Anion Gap 6.8 mmol/L (3-11); BUN 17 mg/dL (7-18); CO2 35.2 mmol/L (21.0-32.0); CREATININE 1.2 mg/dL (0.70-1.30); Calcium 9.3 mg/dL (8.5-10.1); Chloride 99 mmol/L (98-107); Glucose 99 mg/dL (74-106); Potassium 3.6 mmol/L (3.5-5.1); Sodium 141 mmol/L (136-145)
[2021-08-21 07:08] LABS: NT-proBNP 617 pg/mL (<300)
[2021-08-21 07:21] LABS: Calculated LDL 100 mg/dL (<100); Cholesterol 180 mg/dL (<200); HDL Cholesterol 66 mg/dL (40-60); Triglyceride 71 mg/dL (<150)
[2021-08-21 07:56] LABS: Hemoglobin A1C 5.9 % (<5.7)
[2021-08-21] MEDS: Metoprolol CR 25 MG TABCR PO (08:12)
[2021-08-21] MEDS: Sacubitril/Valsartan 24 mg/26 mg TAB 1 EACH PO (08:13)
[2021-08-21] MEDS: Folic Acid 1 MG TAB PO (08:13)
[2021-08-21] MEDS: Empaglifozin 10 MG TAB PO (08:13)
[2021-08-21] MEDS: Spironolactone 25 MG TAB PO (08:13)
[2021-08-21] MEDS: Thiamine 100 MG TAB PO (08:13)
[2021-08-21] MEDS: Multivitamin TAB 1 TAB PO (08:14)
[2021-08-21] MEDS: Normal Saline Flush 10 ML SYR IVP (08:15)
--- NOTE | 2021-08-21 12:31 | DSE_ITS ---
Date of service: 08/21/21 Time of Service: 12:31 DS: Diagnosis Discharge Diagnosis (1) Acute systolic (congestive) heart failure: Status: Acute Asessment and Plan: Mr. Tirado is a 66-year-old male smoker and consumer of alcohol up to 12 pack of beer per day presents emergency department at the urging of his girlfriend due to several weeks of progressive bilateral leg edema and exertional dyspnea. Upo n evaluation in the ED he was found to be tachycardic and hypertensive and tachypneic but not hypoxemic. Chest x-ray demonstrated cardiomegaly and right pleural effusion along with pulmonary edema. CT of the chest showed no pulmonary embolus but demonstrated cardiomegaly and small right pleural effusion and right middle lobe atelectasis. proBNP was elevated at 2700 and his troponin I level was normal at 61. LFTs were normal. Electrolytes showed a low sodium of 129 and low chloride of 88 with normal BUN and creatinine. Patient was admitted to the intensive care unit for treatment of acute new onset congestive heart failure as well as to monitor for acute alcohol withdrawal. Serial EKGs and troponins were obtained initial troponin was less than 50 but subsequent troponin levels were borderline at 61 and 78 and 66. However he had no symptoms of chest pain or pressure throughout his hospital stay. EKG on admission demonstrated sinus tachycardia with PVCs and evidence of left atrial enlargement and inferior Q waves suggestive of a previous inferior infarct and poor R wave progression across the anterolateral leads suggestive of an old anterolateral infarct. However when a subsequent ECG was read by the customer retention representative on 08/20/2021 it was read as showing sinus rhythm with left axis deviation consider left anterior fascicular block and borderline T wave abnormalities and poor R wave progression. There is no reading of an inferior or anteroseptal infarct. Echocardiogram was performed and showed global hypokinesis with severe LV dysfunction with an ejection fraction of 20 to 25%. RV is mild to moderately enlarged with grossly normal systolic RV function. He has biatrial enlargement with moderate left atrial enlargement and mild right atrial enlargement. He has moderate to severe mitral regurgitation and mild to moderate tricuspid regurgitation and mild aortic valvular insufficiency. His RVSP was 36 mm. Ascending aorta is mildly dilated at 3.62 cm. Patient's treatment consisted initially of a bolus of Lasix 40 mg IV given in the emergency department and upon admission to the intensive care unit he was started on a Lasix drip at 20 mg an hour. He was started on goal-directed therapy including spironolactone 25 mg daily, Jardiance 10 mg daily. His admission weight was 102 kg and his final weight upon discharge was down to 90.2 kg. On 08/20/2021 he was switched from the continuous Lasix drip to Lasix 80 mg IV every 12 hours. On the day of discharge his Lasix was changed to oral torsemide 20 mg daily. Patient was started on Entresto 24 mg / 26 mg 1 twice a day which he tolerated quite well. At the time of discharge she was on goal- directed therapy including Toprol-XL 25 mg daily, Entresto 24 mg / 26 mg BID, spironolactone 25 mg daily and Jardiance 10 mg daily. He is to start on torsemide 20 mg daily beginning tomorrow. For his acute alcoholism it was recommended that he be prophylaxed with phenobarbital but the patient refused. CIWA protocol was ordered and CIWA scoring was monitored. Patient's CIWA scores never went higher than 1. Most the time his scores were 0. He was prophylaxed with thiamine and folic acid and multivitamin. He was discharged home under markedly improved condition on 08/21/2021 with a marked reduction in his leg edema to the point where there was just trace to 1+ pedal edema and his lungs were clear to auscultation and he was no longer requiring supplemental oxygen. It was recommended the patient that he have a ischemic work-up as an outpatient including Lexiscan stress MPI study as well as have a follow-up with cardiology as an outpatient. He was referred to a new primary care provider as he currently did not have an active primary care physician. He will see Dr. Daniel Trejo [facility] on 08/30/2021 at 10:15 AM. He has been referred to Dr. Stacie Elder in the cardiology clinic at [facility]. (2) Alcoholism: Status: Chronic Asessment and Plan: Patient was monitored for acute alcohol withdrawal but never exhibited symptoms or signs of alcohol withdrawal. He was placed on thiamine and folic acid and a multivitamin while he was hospitalized and the same were prescribed upon discharge. (3) Obstructive sleep apnea: Status: Suspected Asessment and Plan: Patient is suspected of having obstructive sleep apnea as his girlfriend is witnessed severe snoring as well as some witnessed apneic spells. It is recommended that he be referred to the sleep lab for follow-up sleep study. (4) Blood pressure elevated without history of HTN: Status: Acute Asessment and Plan: Patient had a hypertensive response on admission which responded to diuretics as well as initiation of Entresto and Toprol-XL. (5) Cardiomyopathy: Status: Acute Asessment and Plan: Patient has a dilated cardiomyopathy at this point is undetermined whether this is nonischemic in origin secondary to his alcoholism and/or his sleep apnea versus an ischemic cardiomyopathy from coronary artery disease. (6) Mitral regurgitation: Status: Chronic Discharge Plan Disposition Patient Disposition: HOME Condition: Improving Discharge Details Reason For Visit: Acute CHF Admit Date/Time: 08/19/21 09:56 Admit Provider: Jun Salguero Attending Provider: Jun Salguero Primary Care Provider: Unknown,Unknown Home Meds and New Rx's Prescriptions: New multivitamin [Multiple Vitamins] Tablet 1 tab PO DAILY Qty: 30 1RF spironolactone 25 mg Tablet 25 mg PO DAILY Qty: 30 1RF folic acid 1 mg Tablet 1 mg PO DAILY Qty: 30 1RF metoprolol succinate 25 mg Tablet Extended Release 24 Hr 25 mg PO DAILY Qty: 30 1RF thiamine mononitrate (vit B1) [Vitamin B-1 (mononitrate)] 100 mg Tablet 100 mg PO QAM Qty: 30 1RF Jardiance 10 mg Tablet 10 mg PO QAM Qty: 30 1RF Entresto 24-26 mg Tablet 1 ea PO BID Qty: 60 1RF Discharge Instructions Instructions: Heart Failure (DC), DASH Eating Plan (DC), Left-sided and Right- sided Heart Failure (DC) Referrals: Herbie Trejo MD [ NON-[facility] STAFF PHYSICIAN] - 08/30/21 10:15 am (after hospitalization appt) Stacie Elder MD [ [facility] STAFF PHYSICIAN] - Activity:: Activity as Tolerated Equipment/Supplies:: No Equipment Needed Diet:: Low Sodium Discharge Orders Discharge Orders: Discharge Order (Routine); Ordered 08/21/21 Ordered By: Jun Salguero Other Ambulatory Orders: Basic Metabolic Panel (Routine) Timeframe: 1 Week Facility: [facility] - Location: Laboratory Outpatient Ordered By: Jun Salguero AK MPI rest & stress day 2 (Routine) Timeframe: 1 Week Location: None Selected Ordered By: Jun Salguero Discharge Data Discharge Date/Time-TO BE ENTERED AT DEPARTURE: 08/21/21 13:44 Discharge Comment: Stable. Left with . DS: Summary Time Spent with Patient providing and/or coordinating discharge services: Greater than 30 minutes Status at Discharge Functional status at discharge: independent ambulation Overall status at discharge: patient is progressing back to baseline Mental Status: mental status grossly normal Speech and Movement: speech and movement normal Mood: congruent mood Affect: normal affect Exam Narrative Exam Narrative: Alhaji is sitting up in his chair visiting with his girlfriend who is ready to pick him up and bring him home. He is alert and oriented person place time circumstance. Lungs are clear to auscultation no wheezes or rhonchi or rales Heart is regular rate and rhythm Abdomen is soft nondistended nontender Legs showed trace to 1+ pitting edema. Psych Mental Status: mental status grossly normal Speech and Movement: speech and movement normal Mood: congruent mood Affect: normal affect DS: Data Vitals/I&O Vitals and I&O: Vital Signs Temperature 36.3 C L 08/20/21 15:01 Temperature Source Temporal Artery Scan 08/20/21 15:01 Pulse 72 08/21/21 08:17 Pulse Rhythm Regular 08/21/21 08:30 Pulse 70 08/21/21 09:30 Respiratory Rate 16 08/21/21 09:30 Respiratory Effort 08/21/21 08:30 Respiratory Depth Normal 08/21/21 08:30 Respiratory Pattern Normal 08/21/21 08:30 Blood Pressure 149/64 H 08/21/21 08:17 Blood Pressure Mean 86 08/21/21 08:17 Blood Pressure Position Sitting 08/20/21 08:06 Pulse Oximetry 91 L 08/21/21 08:17 Oxygen Delivery Method Nasal Cannula 08/20/21 08:13 Oxygen Flow Rate 1 08/20/21 08:13 Fraction of Inspired Oxygen (FIO2) 24 08/19/21 09:55 Pain Level 0 08/20/21 08:06 Intake & Output 08/20/21 08/21/21 08/21/21 23:59 11:59 23:59 Intake Total 438 / 678 240 / 240 Output Total 2350 / 4225 800 / 800 Balance -1912 / -3547 -560 / -560 Weight 90.2 kg Intake: IV Oral 420 / 660 240 / 240 Output: Urine 2350 / 4225 800 / 800 Other: Urine Color Yellow Light Vera Urine Appearance Clear Clear Urine Odor Normal None Voiding Methods Urinal Urinal Data Completed and Pending Labs on day of discharge: Labs from last 24 hours 08/21/21 08/21/21 08/21/21 05:32 05:32 05:32 Sodium 141 Potassium 3.6 Chloride 99 Carbon Dioxide 35.2 H Anion Gap 6.8 BUN 17 Creatinine 1.2 Estimated GFR/1.73 m2 >= 60.00 Glucose 99 Hemoglobin A1c 5.9 H Calcium 9.3 NT-Pro-B Natriuret Pep 617 H Triglycerides 71 Total Cholesterol 180 LDL Cholesterol, Calc 100 HDL Cholesterol 66 PFSH All Active Problems (Updated 08/21/21 @ 12:36 by Jun Salguero) Medication monitoring encounter (Acute) CHF (congestive heart failure) (Chronic) Mitral regurgitation (Chronic) Cardiomyopathy (Acute) Blood pressure elevated without history of HTN (Acute) Alcoholism (Chronic) Acute systolic (congestive) heart failure (Acute) Medical History No pertinent past medical history Surgical History No significant past surgical history Family History Aunt No problems noted. Mother Seizure Father No problems noted. Sister No problems noted. Brother No problems noted. Son No problems noted. Son No problems noted. Social History Smoking/Tobacco Use Status: Current every day Tobacco Type: cigarettes Tobacco: How many years used: 50 Smoking risk assessment performed?: Yes Alcohol Intake: current Alcohol Intake frequency: other Alcohol type: beer Previous attempts at quittin Details: 6 to 12 beers per day Substance use type: does not use Do you feel safe at home: Yes Do you feel safe in your relationship?: Yes
--- NOTE | 2021-08-21 13:37 | CMDISCH_ITS ---
- If Service Date Differs Date of service: 08/21/21 Time of Service: 13:37 LACE Index Scoring Tool - Questions: Length of Stay (in days): 2 Acuity (Admit via E.D.?): Yes Comorbidities: Congestive Heart Failure E.D. Visits: 1 - Answers: Total Score: 8 Risk of Readmission: Low Risk Care Management Discharge Reason for Hospitalization: Acute CHF. Discharge Plan: Alhaji returned home today with no new services. His girlfriend drove him home via private vehicle. CM made a follow up appointment for him for 08/30/21 at 10:15am at [facility], as Dr. Gentile was mgmt consultant the day he arrived at the ED. Alhaji stated that he would like to establish care at [facility], and he was given materials to do so. He will follow up with his new PCP and discharge plan of care. He is happy to be going home. Patient/Family Education Needs: Review discharge instructions and limitations, discussion of self care needs including ask me three.
--- NOTE | 2021-08-27 16:24 | PDOC.CMPRO ---
- If Service Date Differs Date of service: 08/27/21 Time of Service: 16:24 Care Management Progress Note CM received a call from Tye Franco, who had received a call from Alhaji Miller's daughter, who had questions about a medication that they were not able to pickler helper at the pharmacy. Angela is not on Alhaji's HIPAA, therefore CM called Alhaji who provided verbal consent to share information with Angela. CM called Angela and informed her that Dr. Salguero wrote a new prescription for Torsemide, as he was not able to get the Jardiance. CM did attempt a PA for the Jardiance, and it was not approved by his insurance company. The out of pocket expense was over $500/month for the Jardiance. CM told Angela that Alhaji can discuss this with his primary care provider, who may make changes to his medications. She does not feel that he should have to wait another week to receive this medication. She asked about having a peer to peer review- CM told her that she can request that from the insurance company, but Dr. Salguero is not available until 09/03/21. Alternatively, his PCP office could assist with this. When Alhaji arrived, he did not have a PCP, so CM set up a new appointment at [facility], as this was the TDoc manager global communications when Alhaji was in the ED. Angela stated that they wanted to be set up with [facility], so they made an appointment at [facility], and cancelled the appointment at [facility]. She wasn?t happy that CM made the appointment at [facility], although CM explained the protocol that we use for follow up appointments. Alhaji is certainly able to make his own appointment with any PCP office of his choosing, and we are happy that they were able to get an appointment so quickly. She asked if we can move that appointment sooner, which we cannot. Angela also reported that the family talked a lot amongst themselves about having a Palliative Care consultation, and Alhaji was agreeable to meet with Palliative. The RN asked for a palliative consultation, and Dr. Salguero did not feel that it was indicated on this admission, therefore it was not placed. Angela was upset that he was ?declined? the visit. CM offered to make an outpatient referral to Palliative care, which was completed. Angela was also upset about Dr. Salguero not being available to complete FMLA paperwork. CM advised her that our Hospitalist team does not complete FMLA paperwork, as this requires follow up, and is more appropriate for a PCP who follows the patient in the community. In this case, this will delay his paperwork until his new PCP visit, next week, but Dr. Salguero did provide a letter stating the dates that he was hospitalized, and that he should not return to work until after he had follow up from his PCP. HUSSAIN spoke to Alhaji, who did not have any questions or concerns.
== END 2021-08-21 13:44 | disposition home or self-care (01) | DRG 292 ==
LOC: ER 10:18 → ICU 10:51
PROVIDERS: Admitting Provider Internal Medicine; Emergency Provider Physician Assistant; Visit Provider Internal Medicine
DX: I50.21 Acute systolic (congestive) heart failure (principal); I42.0 Dilated cardiomyopathy; G47.33 Obstructive sleep apnea (adult) (pediatric); F10.20 Alcohol dependence, uncomplicated; R03.0 Elevated blood-pressure reading, without diagnosis of hypertension; R06.03 Acute respiratory distress; I08.3 Combined rheumatic disorders of mitral, aortic and tricuspid valves; I77.810 Thoracic aortic ectasia; F17.210 Nicotine dependence, cigarettes, uncomplicated; R94.31 Abnormal electrocardiogram [ECG] [EKG]; I49.3 Ventricular premature depolarization
CPT/HCPCS: 36415; 71275; 80048; 80053; 80061; 87635; 93005; 93306; 96374; 99285; J1650; 71045; 83036; 83735; 83880; 84132; 84443; 84484; 85025; 85379; 85610; 85730; 93010; 94660; 99232; 99239; 99291; J1940; J3490

== ENCOUNTER 2021-08-28 01:17 | Outpatient (CLI) | payer OTHER, SELFPAY ==
[2021-08-28 13:32] LABS: Anion Gap 9.3 mmol/L (3-11); BUN 26 mg/dL (7-18); CO2 26.7 mmol/L (21.0-32.0); CREATININE 1.1 mg/dL (0.70-1.30); Calcium 8.8 mg/dL (8.5-10.1); Chloride 100 mmol/L (98-107); Glucose 124 mg/dL (74-106); Potassium 4.9 mmol/L (3.5-5.1); Sodium 136 mmol/L (136-145)
== END 2021-08-28 01:18 | disposition home or self-care (01) ==
LOC: LOS 01:19
PROVIDERS: PCP Family Medicine; Visit Provider Internal Medicine
DX: I50.9 Heart failure, unspecified (principal); Z51.81 Encounter for therapeutic drug level monitoring
CPT/HCPCS: 36415; 80048

== ENCOUNTER 2021-08-30 08:26 | Outpatient (CLI) | payer OTHER, SELFPAY ==
--- NOTE | 2021-08-30 08:15 | RT.EKG_ITS ---
APPROVED REPORT Exam: Resting ECG Reason for Exam: HF Patient Location: O HR:72 bpm ECG Measurements Heart Rate 72 AXIS FL 170 P 54 QRSd 105 QRS -48 QT 398 T 50 QTc 436 Conclusion Sinus rhythm...normal P axis, V-rate 50- 99 Probable left atrial enlargement...P >50mS, <-0.10mV V1 Left axis deviation...QRS axis (-30,-90) Consider anterior infarct...Q >30mS in V2-V5 Minimal ST elevation, lateral leads...ST >0.06mV, I aVL V5 V6
== END 2021-08-30 08:27 | disposition home or self-care (01) ==
LOC: DI.CARD 08:27
PROVIDERS: PCP Family Medicine; Visit Provider Internal Medicine Cardiovascular Disease
DX: I50.21 Acute systolic (congestive) heart failure (principal)
CPT/HCPCS: 93010

== ENCOUNTER → 2021-09-17 01:02 | Outpatient (CLI) | payer OTHER, SELFPAY ==
--- NOTE | 2021-09-17 06:45 | DI.NM_ITS ---
APPROVED REPORT Exam: Exercise Treadmill Patient Location: Out-Patient Room/Bed: Stress Nurse: Breanne Alvarado RN Ordering Provider:MARK CROWLEY, Contact Number: [phone] BMI: 31.56 Baseline Rhythm: Sinus Rhythm, 1DHB Indications: HFrEF, CHF Medical History Medical History: CHF, mitral regurgitation, cardiomyopathy, hypertension, COPD, VALERIANO, obesity, hx alco holism, current tobbaco use Cardiac Medications: Metoprolol succinate, torsemide, spironolactone, sacubitril-valsartan, jardiance Allergies: NKA Cardiac Risk Factors: Hypertension, obesity, COPD, current tobacco use, family hx Previous Cardiac Procedures: None Pretest Chest Pain Characteristics: None Exercise History: Sedentary Physical Disabilities: None Lung Sounds: Clear to auscultation Heart Sounds: Regular Stress Test Details Test: Exercise stress testing was performed using a Tay protocol. Nuclear Acquisition: Rest Tc-99m/Stress Tc-99m 1 day Rest Isotope: Tc-99m Sestamibi. Dose: 10.6 Date: 09/17/2021 Injection Time: 0830 Stress Isotope: Tc-99m Sestamibi. Dose: 30.0 Date: 09/17/2021 Injection Time: 1010 HR Resting HR Supine: 84 bpm Max Heart Rate (APMHR): 155.844989 bpm Resting HR Standin bpm Target HR (85% APMHR): 131.242808 bpm Max HR Achieved: 145 bpm % of APMHR: 93.55 Recovery HR: 98 bpm HR response to stress: Normal HR response to stress Comment: Metoprolol succinate held for 48 hrs BP Resting BP Supine: 134/80 mmHg Resting BP Standin/82 mmHg Max BP: 224/82 mmHg Recovery BP: 146/82 mmHg BP response to stress: Abnormal hypertensive response to stress. ECG Resting ECG: Sinus Rhythm, 1DHB Ectopy: None Stress ECG: Sinus Tachycardia, 1DHB ST Change: No significant ST segment changes noted Arrhythmia: Frequent PACs, occasional PVCs Recovery ECG: Sinus Rhythm, 1DHB Recovery ST Change: No significant ST segment changes noted Recovery Arrhythmia: Frequent PACs Clinical Reason for Termination: Fatigue Stress Symptoms: General Fatigue Exercise duration: 3 min14 sec Highest Stage Reached: Stage 1: 1.7 mph at 10% grade. Exercise capacity: 4.64 METs Angina Score: None Avery Treadmill Score: 2.6 Rate Pressure Product: 11888 Stress ECG Conclusion 1. The resting electrocardiogram showed voltage for left ventricular hypertrophy, poor R wave progres oly, possible old anterior infarct 2. Patient exercised on the Tay protocol and completed a workload of 4.64 METS, limited by fatigue 3. Normal heart rate and blood pressure response to exercise. The patient achieved 93% of predicted heart rate for age 4. There was no electrocardiographic evidence of myocardial ischemia 5. Atrial premature beats were noted 6. See MPI report Avery Treadmill Score is 2.6 which is Moderate risk. Stress Test Summary STAGE Time (mins) Speed (mph) Grade (%) HR BP SYMPTOMS METS Supine 84 134/80 Standing 93 128/82 SpO2 95% 1 3 1.7 10 141 188/90 Mild/moderate SOB, SpO2 95% 4.6 1 min recovery 129 224/82 Moderate SOB, SpO2 95% 3 min recovery 103 196/78 SOB resolved, SpO2 95% 6 min recovery 98 146/82 SpO2 95% Modified Tay protocol; continued settings of stage 1 so patient would maintain exercise for 60 seco nds after nuclear medicine Sestamibi administration. Patient tolerated testing well. MPI Conclusion Myocardial perfusion is normal without ischemia or prior infarction Left ventricle is mildly dilated EF is 35%, global hypokinesis Radiologist Interpretation Radiologist agrees with Yeast Tender's Interpretation. Radiologist Interpretation by: Joo Null MD Interpretation Date/Time: 09/17/2021 17:16:35
== END ==
PROVIDERS: PCP Family Medicine; Visit Provider Internal Medicine Cardiovascular Disease
DX: I50.9 Heart failure, unspecified (principal)
CPT/HCPCS: 78452; 93017

== ENCOUNTER 2021-10-02 02:11 | Outpatient (CLI) | payer OTHER, SELFPAY ==
[2021-10-02 13:12] LABS: Anion Gap 8.6 mmol/L (3-11); BUN 23 mg/dL (7-18); CO2 26.4 mmol/L (21.0-32.0); CREATININE 1.2 mg/dL (0.70-1.30); Calcium 9.2 mg/dL (8.5-10.1); Chloride 102 mmol/L (98-107); Glucose 110 mg/dL (74-106); NT-proBNP 182 pg/mL (<300); Potassium 4.4 mmol/L (3.5-5.1); Sodium 137 mmol/L (136-145)
== END 2021-10-02 02:12 | disposition home or self-care (01) ==
LOC: LOS 02:11
PROVIDERS: PCP Family Medicine; Visit Provider Internal Medicine Cardiovascular Disease
DX: I50.9 Heart failure, unspecified (principal)
CPT/HCPCS: 36415; 80048; 83880

== ENCOUNTER → 2021-11-19 02:04 | Outpatient (CLI) | payer OTHER, SELFPAY ==
--- NOTE | 2021-11-19 06:30 | DI.US_ITS ---
APPROVED REPORT EXAM: Comprehensive 2D, Doppler, and color-flow Echocardiogram Patient Location: Out-Patient Aluminum Molder: Meli Aquino RDCS (AE) Indications: CHF Other Information Study Quality: Adequate Conclusion Normal left ventricular wall thickness and chamber size. Estimated ejection fraction is 50-55 percen t. There is very mild global hypokinesis Normal right ventricular size and systolic function Left atrium is mildly dilated The aortic valve is sclerotic and trileaflet with mild regurgitation Thickened mitral leaflets with moderate regurgitation Normal tricuspid valve with mild regurgitation. Estimated right ventricular systolic pressure is 37 mmHg Mildly dilated ascending aorta measuring 3.66 cm Compared to an echocardiogram from August 2021 there has been significant improvement in LV function, de crease in mitral regurgitation Wall motion Left Ventricle The left ventricle is normal size. Left ventricular systolic function is mildly decreased. There is n ormal left ventricular wall thickness. There is mild global hypokinesis of the left ventricle. There is no ventricular septal defect visualized. LVEF is 50-55%. Right Ventricle The right ventricle is normal size. The right ventricular systolic function is normal. The RVSP is 37 .0 mmHg. Atria Left atrium is mildly dilated. The right atrium size is normal. The interatrial septum is intact with no evidence for an atrial septal defect. Aortic Valve The Aortic valve is sclerotic. Aortic valve is trileaflet. There is no aortic valvular stenosis. Mild aortic regurgitation. Mitral Valve Mitral valve leaflets are mildly thickened. No evidence of mitral valve stenosis. Moderate mitral reg urgitation. Bioprosthetic mitral valve appears normal. Tricuspid Valve The tricuspid valve is normal in structure. There is no tricuspid valve stenosis. Mild tricuspid regu rgitation. Pulmonic Valve The pulmonary valve is normal in structure. There is no pulmonic valvular stenosis. Trace pulmonic re gurgitation. Great Vessels The aortic root is normal in size. The ascending aorta is mildly dilated. Aortic arch is not well vis ualized. IVC is normal in size and collapses >50% with inspiration. Pericardium There is no pericardial effusion. 2D Dimensions IVSD d PLAX 1.16 cm M: 0.6-1.2 LV Vol A2C d MOD 138.6 mL LVPW d PLAX 1.16 cm M: 0.6 - 1.2 LV Vol A4C d MOD 143.8 mL LVID d PLAX 5.72 cm M: 4.2 - 5.8 LA vol/ BSA A2C s A-L 42.9 mL/m2 LVDs 4.00 cm M: 2.5 - 4.0 LA vol/ BSA A4C s A-L 31.0 mL/m2 Ao Root d 3.13 cm M: 3.1 - 3.7 LA Vol/ BSA Biplane s A-L 37.1 mL/m2 RA Area A4C 21.99 cm2 LA Area A4C s MOD 21.92 cm2 RA Vol/ BSA A4C s A-L 36.1 mL/m2 LA Area A2C s MOD 25.33 cm2 Ao Asc Diam d 3.66 cm M: 2.6 - 3.4 LV EF A4C MOD 49.7 % LV EF Teichholz 55.5 % LV EF A2C MOD 48.1 % LVEF (Reyes's) 48.39 % M: 52 - 72 LV EF Biplane MOD 48.4 % LV Volume 104.12 mL M: 62 - 150 SV 68.81 mL LV Volume Index 48.42 mL/m2 M: 34 - 74 SV Index 31.96 mL/m2 LV Vol Biplane MOD 142.2 mL FS 29.30 % M-Mode TAPSE 1.70 cm (M/F) >1.7 LV Diastology MV E' medial 0.053 (>0.07 m/s) E/A Ratio 0.9 LV E/e MED 27.90 (<14) MV E Vmax 1.47 (0.4-1.3 m/s) MV E' lateral 0.064 (>0.1 m/s) MV A Vmax 1.60 (0.4-1.3 m/s) LV E/e LAT 23.05 (<14) MV E/A Ratio 0.91 MV E/E' medial 27.90 MV E/E' lateral 23.07 Aortic Valve LVOT Area 3.44 cm2 AoV Area Vmax 2.48 cm2 LVOT Vmax 1.13 m/s AoV Area/ BSA (Vmax) 1.15 cm2/m2 LVOT Mean Alexys. 0.70 m/s INESSA Mean Alexys. 2.24 cm2 LVOT Peak Grad 5.1 mmHg INESSA Mean Alexys. Index 1.04 cm2/m2 LVOT Mean Grad 2.4 mmHg AR DT 1939 msec LVOT VTI 0.271 m AR PHT 562 msec LVOT Diam s 2.05 cm AoV Vmax 1.56 m/s Velocity Ratio 0.72 AoV Mean Alexys. 1.07 m/s AoV Peak Grad 9.8 mmHg LVOT SV 93.16 mL AoV Mean Grad 5.2 mmHg AoV VTI 0.343 m AoV Area VTI 2.71 cm2 AoV Area/ BSA (VTI) 1.26 cm/m2 Mitral Valve MV DT 517 (160-240 msec) MR Vmax 5.77 m/s MV PHT 150 msec MR VTI 2.008 m MV Area PHT 1.47 cm2 MR Peak Grad 133.1 mmHg MV VTI 0.668 m MR Mean Grad 85.7 mmHg MV Area VTI 1.39 (4.0-6.0 cm2) Pulmonary Valve PV Vmax 0.87 (0.5-1.5 m/s) RVOT Peak Gr. 2.46 mmHg PV Peak Grad 3.0 mmHg RVOT Mean Gr. 1.35 mmHg PV Mean Grad 1.8 mmHg RVOT VTI 0.176 m PV VTI 0.211 m RVOT Vmax 0.78 m/s Tricuspid Valve TR Peak Grad 34.0 mmHg TR Vmax 2.92 m/s RA Pressure 3.00 mmHg RVSP (TR) 37.0 mmHg
== END ==
PROVIDERS: PCP Family Medicine; Visit Provider Internal Medicine Cardiovascular Disease
DX: I50.9 Heart failure, unspecified (principal)
CPT/HCPCS: 93306

== ENCOUNTER 2022-01-09 03:59 | Outpatient (CLI) | payer OTHER, SELFPAY ==
[2022-01-09 13:29] LABS: Anion Gap 8.8 mmol/L (3-11); BUN 34 mg/dL (7-18); CO2 28.2 mmol/L (21.0-32.0); CREATININE 1.5 mg/dL (0.70-1.30); Calcium 9.3 mg/dL (8.5-10.1); Chloride 101 mmol/L (98-107); Estimated GFR 51.35 (mL/min/1.73m2); Glucose 112 mg/dL (74-106); Potassium 4.8 mmol/L (3.5-5.1); Sodium 138 mmol/L (136-145)
== END 2022-01-09 04:00 | disposition home or self-care (01) ==
LOC: LOS 03:59
PROVIDERS: PCP Family Medicine; Visit Provider Family Medicine
DX: E87.1 Hypo-osmolality and hyponatremia (principal)
CPT/HCPCS: 36415; 80048

== ENCOUNTER 2022-03-27 01:36 | Outpatient (CLI) | payer OTHER, SELFPAY ==
[2022-03-27 12:32] LABS: BUN 44 mg/dL (7-18); CREATININE 1.6 mg/dL (0.70-1.30); Estimated GFR 47.23 (mL/min/1.73m2)
[2022-03-27 12:36] LABS: Hemoglobin A1C 5.9 % (<5.7)
[2022-03-27 13:22] LABS: Lab Add On Test DONE
[2022-03-27 13:29] LABS: Anion Gap 8.3 mmol/L (3-11); CO2 27.7 mmol/L (21.0-32.0); Chloride 103 mmol/L (98-107); Potassium 5.1 mmol/L (3.5-5.1); Sodium 139 mmol/L (136-145)
== END 2022-03-27 01:37 | disposition home or self-care (01) ==
LOC: LOS 01:36
PROVIDERS: PCP Family Medicine; Visit Provider Family Medicine
DX: I50.9 Heart failure, unspecified (principal); N28.9 Disorder of kidney and ureter, unspecified; R73.03 Prediabetes; Z12.5 Encounter for screening for malignant neoplasm of prostate
CPT/HCPCS: 36415; 80051; 84520; 82565; 83036

== ENCOUNTER 2022-06-10 08:10 | Outpatient (CLI) | payer OTHER, SELFPAY ==
[2022-06-10 12:27] LABS: BUN 35 mg/dL (7-18); CREATININE 1.5 mg/dL (0.70-1.30); Calcium 9.7 mg/dL (8.5-10.1); Chloride 102 mmol/L (98-107); Estimated GFR 51.03 (mL/min/1.73m2); Glucose 121 mg/dL (74-106); Potassium 4.5 mmol/L (3.5-5.1); Sodium 141 mmol/L (136-145)
== END 2022-06-10 08:11 | disposition home or self-care (01) ==
LOC: LOS 08:10
PROVIDERS: PCP Family Medicine; Referring Provider Family Medicine; Visit Provider Family Medicine
DX: E87.1 Hypo-osmolality and hyponatremia (principal)
CPT/HCPCS: 36415; 80048

== ENCOUNTER 2023-02-04 13:20 | Outpatient (CLI) | payer OTHER, SELFPAY ==
--- NOTE | 2023-02-04 13:15 | RT.EKG_ITS ---
APPROVED REPORT Exam: Resting ECG Reason for Exam: Vomiting Patient Location: O HR:63 bpm ECG Measurements Heart Rate 63 AXIS MA 175 P 56 QRSd 101 QRS -35 QT 410 T 58 QTc 420 Conclusion Sinus rhythm...normal P axis, V-rate 50- 99 Atrial premature complex...SV complex w/ short R-R interval Left axis deviation...QRS axis (-30,-90) Borderline low voltage, extremity leads...all extremity leads <0.6mV
== END 2023-02-04 13:21 | disposition home or self-care (01) ==
LOC: DI.CM 13:20
PROVIDERS: PCP Family Medicine; Visit Provider Family Medicine
DX: R07.9 Chest pain, unspecified (principal)
CPT/HCPCS: 93010

== ENCOUNTER 2023-09-08 08:52 | Outpatient (CLI) | payer OTHER, SELFPAY ==
--- NOTE | 2023-09-08 08:45 | RT.EKG_ITS ---
APPROVED REPORT Exam: Resting ECG Reason for Exam: Bradycardia Patient Location: O HR:71 bpm ECG Measurements Heart Rate 71 AXIS OR 154 P 86 QRSd 89 QRS -61 QT 434 T 81 QTc 472 Conclusion Sinus rhythm...normal P axis, V-rate 50- 99 Supraventricular bigeminy...bigeminy string>4 w/ SV complexes Left anterior fascicular block...axis(240,-40), init forces inf
== END 2023-09-08 08:53 | disposition home or self-care (01) ==
LOC: DI.CARD 08:53
PROVIDERS: PCP Family Medicine; Visit Provider Internal Medicine Cardiovascular Disease
DX: I50.21 Acute systolic (congestive) heart failure
CPT/HCPCS: 93010

== ENCOUNTER 2024-04-26 08:57 | Outpatient (CLI) | payer OTHER, SELFPAY ==
[2024-04-26 12:53] LABS: CREATININE 1.5 mg/dL (0.70-1.30); Calculated LDL 113 mg/dL (<100); Cholesterol 187 mg/dL (<200); HDL Cholesterol 49 mg/dL (40-60); Potassium 4.7 mmol/L (3.5-5.1); Triglyceride 126 mg/dL (<150)
[2024-04-26 13:09] LABS: Hemoglobin A1C 5.8 % (<5.7)
== END 2024-04-26 08:58 | disposition home or self-care (01) ==
LOC: LOS 08:57
PROVIDERS: PCP Family Medicine; Referring Provider Family Medicine; Visit Provider Family Medicine
DX: I10 Essential (primary) hypertension (principal); R73.9 Hyperglycemia, unspecified; E78.5 Hyperlipidemia, unspecified; Z23 Encounter for immunization
CPT/HCPCS: 36415; 80061; 82565; 83036; 84132